=== PATIENT | female | born 1965 | race Two or more races ===

== ENCOUNTER → 2018-10-15 06:54 | Day surgery (SDC) | payer OTHER ==
--- NOTE | 2018-09-27 03:42 | HP ---
AMENDED REPORT NOW INCLUDES DESIGNATED COSIGNER CC: Dr. Guan; Dr. Escobar * HISTORY AND PHYSICAL: DATE OF ADMISSION: 10/15/18 ATTENDING PHYSICIAN: Dr. Penny Jeffrey.* (DICTATED BY CADY GIMENEZ) CHIEF COMPLAINT: Right thyroid nodule. HISTORY OF PRESENT ILLNESS: This is a generally healthy 52-year-old female who has had a known right thyroid nodule for approximately 20 years. This was first noted by her primary care provider. It has been biopsied on multiple occasions, always benign. It has increased in size, though the most recent ultrasounds have been stable. Ultrasound from 06/17/18 showed a 36 x 25 x 29 mm nodule in the right thyroid with mixed solid and cystic components as well as multiple microcalcifications. She has also undergone previous nuclear medicine scan. She denies pain or difficulty breathing. She states that she has always had trouble with swallowing in the sense that she always needs to drink ample water with solid food, though this has been stable and unchanged. She has undergone thyroid function tests and shown to be euthyroid. She was seen most recently by Dr. Escobar in July and by Dr. Jeffrey on 08/12/18 (see separate office notes). Dr. Jeffrey has discussed with her the indications for surgery, the risks, benefits and alternatives and she would like to proceed as scheduled with right hemithyroidectomy. The patient is from [place] and was living in [place] at the time of the [place] accident. PAST MEDICAL HISTORY: GERD and obesity. PAST SURGICAL HISTORY: D and C. CURRENT MEDICATIONS: 1. Omeprazole 20 mg once daily. 2. Fiber supplement daily. DRUG ALLERGIES: None known. FAMILY HISTORY: Negative for anesthesia problems, bleeding, or clotting disorders. SOCIAL HISTORY: The patient is . She has 2 children. 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 She quit smoking in 1995. She drinks alcohol infrequently and denies any other recreational drug use. REVIEW OF SYSTEMS: General: No recent constitutional symptoms or acute illnesses other than some recent dental problems, for which she is scheduled for root canal on 09/29/18. HEENT: As above. No additions. Cardiovascular: No chest pain or palpitations or history of heart murmur. Respiratory: No history of asthma, chronic cough, or shortness of breath. GI: GERD, controlled. Colonoscopy done approximately 4 years ago and reportedly normal. She has undergone previous EGD as well. : No problems reported. 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 Mammogram also within the past year, reportedly normal. Endocrine: No diabetes or thyroid dysfunction. See also above per HPI. PHYSICAL EXAMINATION GENERAL: Well-nourished, obese female, in no acute distress. VITAL SIGNS: Height 66 inches, weight 175 pounds, blood pressure 124/80, pulse 66, respirations 16. HEENT: Pupils are equal and round, reactive. EOMs intact. No conjunctival pallor. Oropharynx: Teeth in good repair. No intraoral lesions. NECK: Visible and palpable right thyroid nodule, which is nontender and corresponding to exam and measurements as noted in the HPI. No other discrete neck masses. No palpable lymphadenopathy. LUNGS: Clear to auscultation. No rales or wheezes. HEART: Regular rate and rhythm. No murmur noted. BREASTS: Not examined. ABDOMEN: Soft, nontender to palpation. No palpable masses or organomegaly. GENITALIA AND RECTAL: Not done. BACK: No spinous process or CVA tenderness. EXTREMITIES: No edema. NEUROLOGICAL: Grossly intact. SKIN: Warm and dry. No suspicious rashes or lesions noted. IMPRESSION: Right thyroid nodule. PLAN: Right hemithyroidectomy. CADY GIMENEZ [id number]/[facility] #: [id number] [facility] HOSPITALSammi
[~2018-10-15 06:54] MED LIST: Artificial Tear OPHTH.OINT* 3.5 GM ONE; Buffered Lidocaine 1% SYRIN* 1 ML/SYRINGE INTRADERM ONE; Bupivacaine 0.25% SDV PF* 10 ML VIAL INJ ONE; Cisatracurium* 2 MG/ML MDV 5 ML ONE; Dexamethasone IV* 4 MG/ML 1 ML (4 MG) ONE; DiMENhydriNATE IV* 50 MG/ML VIAL IV PUSH PRN; EPHEDrine (Pressors)* 50 MG/ML VIAL ONE; Famotidine IV* 10 MG/ML 2 ML (20 mg) IV ONE; Famotidine IV* 10 MG/ML 2 ML (20 mg) ONE; KETAMINE HCL* 50 MG/ML 10 ML VIAL ONE; Lactated Ringers 1000 ML Bag* 1,000 ML IV SCH; Lidocaine 1% INJ* 10 MG/ML 30 ML SDV ONE; Lidocaine 2% PF * 5 ML VIAL ONE; Midazolam* 1 MG/ML 5 ML VIAL (5 MG) ONE; Naloxone* 0.4 MG/ML 1 ML VIAL IV PRN; Ondansetron INJ* 2 MG/ML VIAL IV PRN; Ondansetron INJ* 2 MG/ML VIAL ONE; Propofol* 10 MG/ML 20 ML BTL ONE; Scopolamine 1.5 mg* PATCH ONE; fentaNYL* 50 MCG/ML 2 ML VIAL (100 MCG VIAL) IV PRN; fentaNYL* 50 MCG/ML 2 ML VIAL (100 MCG VIAL) ONE; oxyCODONE/Acetamin 5/325 MG* TAB PO PRN
--- NOTE | 2018-10-15 13:08 | OP ---
DATE OF OPERATION: 10/15/18 - [facility] DATE OF : 61 SERVICE: General Surgery. ATTENDING SURGEON: Penny Jeffrey MD. GUNITE NOZZLE OPERATOR: Mary Kong MD. ANESTHESIOLOGIST: Dr. Jamel Duval. ANESTHESIA: General endotracheal anesthesia. PRE-OP DIAGNOSIS: Large right thyroid nodule. POST-OP DIAGNOSIS: Large right thyroid nodule. OPERATIVE PROCEDURE: Right thyroid lobectomy. SPECIMEN: Right thyroid lobe. ESTIMATED BLOOD LOSS: Minimal, less 10 cc. INDICATIONS FOR SURGERY: Ms. Champagne is a very pleasant 52-year-old female with a history of a large suspicious appearing right-sided thyroid nodule that has been biopsied as benign for multiple decades. However, given the need for continued follow up after so many years, she wished to undergo a right thyroid lobectomy. She understood the risks, benefits, and alternatives of the procedure and she wished to proceed. DESCRIPTION OF PROCEDURE: The patient was brought back to the operating room and placed on the operating table in the supine position. Sequential compression devices were placed in the bilateral lower extremities for DVT prophylaxis. No antibiotics were administered. General endotracheal anesthesia was induced. Electrodes for the nerve monitor were attached, and then prior to administering local anesthesia, time-out was performed verifying the patient's name, MR number, and the procedure to be performed. Local anesthesia consisting of 0.25% Marcaine and 1% lidocaine was administered to the anterior neck. After this was done, the neck was prepped and draped in normal sterile fashion. Prior to beginning the procedure, a second time-out was performed, again verifying the patient's name, MR number, and the procedure to be performed which was a right thyroid lobectomy. An approximately 4-cm incision was made to the skin at the anterior neck in a natural crease line approximately 2 fingerbreadths above the sternal notch. The skin was divided down to the subcutaneous tissue. The platysma was divided. The inferior and superior subplatysmal flaps were developed. The median raphe between the strap muscles was identified and divided. The isthmus of the thyroid was identified and noted to be very small. A tunnel was created below the isthmus and above the trachea, and then the isthmus was divided flush with the left thyroid lobe. Once the isthmus was divided, it was retracted towards the right side and the medial attachments of the right thyroid lobe to the trachea were divided using LigaSure. Next, the space of Louise between the upper pole and cricothyroid muscle was developed. Attention was turned towards the space lateral to the thyroid lobe. Using blunt dissection, the lateral space of the right thyroid lobe was developed. The patient has had multiple biopsies and so there were quite a few adhesions of the strap muscle to the very large right upper nodule. After this was done, the superior pole vessels were taken down using a combination of 2-0 silk ties and LigaSure, and then after this was done, it was noted that the entire superior pole was largely taken out the 3-cm nodule, which was very soft and easy to manipulate. Next, the right thyroid lobe was rotated medially out of the neck and then the recurrent laryngeal nerve on the right side was identified visually and also with the nerve monitor. After it was identified and traced in its entire course up to the cricothyroid muscle insertion point, the thyroid lobe was taken off of the trachea carefully using LigaSure. The lower parathyroid was identified and preserved on its pedicle. An exploration for the right upper parathyroid gland was undertaken but it was not definitively identified. A careful inspection of the right thyroid lobe specimen did not reveal any parathyroid glands. The right thyroid lobe was then carried off the table as specimen after marking its upper pole. After this was done, hemostasis was obtained in the neck. Tisseel was placed in the right lateral neck. The strap muscles were reapproximated using 3-0 Vicryl suture. The platysma was reapproximated using 4-0 Vicryl suture, and the skin was closed using a running 5-0 Prolene suture. A sterile dressing was then placed, and the patient's anesthesia was reversed, and she was taken to the PACU in stable condition. At the end of the case, all counts were correct and I was present during the entirety of the case. [id number]/[facility] #: [id number] [facility]PITALSammi
[2018-10-15 16:26] VITALS: BP 119/63
== END | disposition home or self-care (01) ==
LOC: OR 06:54
PROVIDERS: ATTEND Surgery
DX: E04.1 Nontoxic single thyroid nodule (principal); K21.9 Gastro-esophageal reflux disease without esophagitis
CPT/HCPCS: 88307; A9270-GY; C1776; J1100; J2250; J2405; J2704; J3010; J3490